=== PATIENT | female | born 1990 | race Caucasian/White ===

== ENCOUNTER 2018-01-02 11:44 | Emergency (ER) | payer OTHER, SELFPAY ==
[2018-01-02 11:46] VITALS: BP 145/79; PULSE 76; RESP 18; TEMP 36.9; O2SAT 99; BMI 22.4
[2018-01-02 12:56] LABS: Absolute Lymphocyte Count 1.23 X10^3/ul (0.83-4.51); Absolute Neutrophil Count 3.3 X10^3/uL (2.0-7.7); Basophil# 0.01 X10^3/uL; Basophil% 0.2 % (0-1); Eosinophil# 0.02 X10^3/uL; Eosinophils% 0.4 % (0-5); Hematocrit 33.9 % (37-47); Hemoglobin 11.7 g/dl (12.0-15.0); Lymphocyte # 1.23 X10^3/ul (4.0); Lymphocyte % 26.1 % (19-41); Mean Corp Hgb Conc 34.5 g/gl (32-36); Mean Corpuscular Hgb 30.9 pg (27.0-32.0); Mean Corpuscular Volume 89.4 fL (81-99); Monocyte% 4.2 % (0-10); Neutrophil # 3.25 X10^3/uL (2.7-7.7); Neutrophil % 69.1 % (47-70); POSITIVE COUNT NO; POSITIVE DIFFERENTIAL NO; POSITIVE MORPHOLOGY NO; Platelet Count 178 K/mm3 (150-450); RBC Distribution Width SD 38.9 fl (35.1-43.9); Red Blood Count 3.79 M/mm3 (4.2-5.4); White Blood Count 4.7 K/mm3 (4.4-11.0)
[2018-01-02] MEDS: 0.9% Normal Saline 1,000 ML 150 ML IV (12:59)
[2018-01-02 13:15] LABS: ALB/GLOB Ratio 1.2 RATIO (0.9-2.4); AST(SGOT) 11 U/L (15-37); Alanine Aminotransfer ALT/SGPT 13 U/L (13-56); Albumin, Serum 3.9 g/dL (3.2-5.0); Alkaline Phosphatase 72 U/L (45-117); Anion Gap 9 (5-15); BUN 5 mg/dL (7-18); BUN/Creat Ratio 6.4 RATIO (10-20); Calcium,Total 8.6 mg/dL (8.5-10.1); Chloride 108 mmol/L (98-107); Creatinine, Serum 0.78 mg/dL (0.55-1.02); EST Glomerular Filtration Rate 94 mL/min (>60); Est Glom Filt Rate - Afr Amer 114 mL/min (>60); Estimated Creatinine Clearance 114.22 ml/min; Globulin 3.2 g/dL (2.2-4.2); Glucose 87 mg/dL (74-106); Potassium 3.8 mmol/L (3.5-5.1); Protein, Total 7.1 g/dL (6.4-8.2); Sodium Level 141 mmol/L (136-145)
[2018-01-02 13:28] LABS: Pregnancy, Serum, hCG Quali. NEGATIVE Negative (0-9 Nonpreg)
[2018-01-02 14:07] LABS: D-Dimer Quantitative (DVT/PE) < 0.27 FEU/ug/m (0.27-0.49)
--- NOTE | 2018-01-02 14:18 | ED.VISSUMM ---
- ER Visit Summary Date of Service: 01/02/18 Chief Complaint: [Chest pain and shortness of breath as well as abdominal pain] History of Present Illness: The patient is a 27 F [presents the emergency department with complaint of some chest tightness that started today. Patient also states that she over the last 5 months has had intermittent abdominal discomfort she describes as crampy/achy diffuse pain. Patient thinks that at times food does make her pain worse. Patient associates her abdominal pain with starting an oral contraceptive. Today she was seen at the urgent care because she had some chest tightness and felt somewhat short of breath today and they were concerned about potential for DVT or PE and send her to the ER for evaluation. Patient denies any recent travel or surgery. Patient does not have a history of PE or DVT. Patient denies any fevers. She denies any cough.] Physical Examination: [HEENT-PERRLA, EOMI. Cranial nerves II through XII grossly intact. TMs clear. Mucous membranes moist. No adenopathy. Cardiovascular-regular rate and rhythm without murmur or ectopy Lungs-clear to auscultation, chest wall stable without crepitus or subcu emphysema Abdomen-normoactive bowel sounds, soft, nontender, no rebound or rigidity, no peritoneal signs. Extremities-intact ?4, normal range of motion, normal pulses, atraumatic] Test Results: [CBC with differential obtained showed a white count of 4.7, hemoglobin 11.7, hematocrit 34. Chemistries unremarkable. LFTs were normal. Troponin was less than 0.015. HCG was negative. D-dimer was less than 0.27.] Emergency Department Course and Treatment: [] Treatment Plan: [Patient will be referred to [facility] on-call for follow-up. Patient states that she thinks she will discontinue her oral contraceptive.] Disposition: [Discharged home in stable condition] Impression: [Chest pain-etiology uncertain Abdominal pain-etiology uncertain] This note was generated with [employer] dictation software. It may contain incorrect words, spelling, and punctuation that were not noted in review of the chart prior to signing ED Disposition - Plan for ED Patient: Chief Complaint: General Illness Referrals: Care Physician,No Primary [Primary Care Provider] -
--- NOTE | 2018-01-02 14:21 | ED.DEP ---
ED Disposition - Plan for ED Patient: Chief Complaint: General Illness Instructions: ED Chest Pain Atypical Unkn Cause, ED Abdominal Pain Unkn Cause Referrals: Care Physician,No Primary [Primary Care Provider] - Sandra Rosas MD [STAFF PHYSICIAN] -
[2018-01-02 14:33] VITALS: BP 109/77; PULSE 52; RESP 16; O2SAT 100
== END 2018-01-02 14:34 | disposition home or self-care (01) ==
LOC: ED 13:02
PROVIDERS: Emergency Provider Emergency Medicine
DX: R07.89 Other chest pain (principal); R10.9 Unspecified abdominal pain; R06.00 Dyspnea, unspecified; J30.2 Other seasonal allergic rhinitis; Z79.3 Long term (current) use of hormonal contraceptives
CPT/HCPCS: 80053; 84484; 84703; 85025; 85379; 96360; 96361; 96374; 99283; J7030